=== PATIENT | female | born 1960 | race Caucasian/White ===

== ENCOUNTER 2016-12-22 20:38 | Emergency (ER) | payer OTHER ==
[~2016-12-22 20:38] MED LIST: ASPI81TA82 PO; ATOR40TA49 PO; CLON1TAB PO; CYMB30CA PO; FISH100020 OR; FURO10S PO; GABA300C3 PO; LISI-586 PO; PERC5TAB12 PO; TIZA4CAP PO; VITATAB25; Z.0.COMMODE-3:1; Z.0.WALKERFRONT
[2016-12-22 20:42] VITALS: BP 140/87; PULSE 103; RESP 20; TEMP 99.3; O2SAT 99
--- NOTE | 2016-12-22 21:16 | PD ---
Physical Exam Time Seen by Provider: 21:14 Narrative 56 y/o female with cough/chills for 5 days, worse today. Some heaviness in the chest, sob associated. vital signs reviewed. Seen at triage desk. Awaiting bed placement. Data Data Last Documented VS Vital Signs Date Time Temp Pulse Resp B/P Pulse Ox O2 Delivery O2 Flow Rate FiO2 12/22/16 20:42 99.3 103 20 140/87 99 Room Air [facility] Medical Record Reviewed: Yes Supervised Visit with ANJELICA: Brannon Jeffery December 22, 2016 21:16
[2016-12-22] MEDS ORDERED: SODIUM CHLORIDE 0.9% FLUSH 10 ML FLUSH IVF PRN (22:15)
[2016-12-22] MEDS ORDERED: methylPREDNISolone SOD SUCC 125 MG/2 ML VIAL IV ONE (22:15)
[2016-12-22] MEDS ORDERED: SODIUM CHLOR 0.9% 1000 ML INJ 1,000 ML IV ONE (22:15)
[2016-12-22 22:24] VITALS: RESP 19; O2SAT 96
[2016-12-22] MEDS: RESP: ALBUTEROL 2.5 MG/IPRATROPIUM 0.5 MG NEB (SCH) INH ×2 (22:26→22:27)
--- NOTE | 2016-12-22 22:34 | RADRPT ---
EXAM DATE/TIME: 12/22/2016 22:15 [place] COMPARISON: No previous studies available for comparison. INDICATIONS : Chest pain and cough for one week. MEDICAL HISTORY : None. SURGICAL HISTORY : None. ENCOUNTER: Initial ACUITY: 1 week PAIN SCORE: 3/10 LOCATION: Bilateral chest FINDINGS: PA and lateral views of the chest demonstrate the lungs to be symmetrically aerated without evidence of mass, infiltrate or effusion. The cardiomediastinal contours are unremarkable. Osseous structure s are intact. The patient is status post lower cervical fusion with screw-plate fixation device. CONCLUSION: No acute disease. There is no evidence of pneumonia. Macario Cazares MD on December 22, 2016 at 22:31 Board Certified Radiologist. This report was verified electronically.
[2016-12-22 22:49] LABS: AUTOMATED NEUTROPHIL # 4.2 TH/MM3 (1.8-7.7); BASOPHIL % 0.6 % (0.0-2.0); EOSINOPHIL # 0.1 TH/MM3 (0-0.4); HEMATOCRIT 34.3 % (35.0-46.0); HEMO FLAGS DIFF FINAL; LYMPH % 13.4 % (9.0-44.0); LYMPHOCYTE # 0.7 TH/MM3 (1.0-4.8); MEAN CELL VOLUME 81.2 FL (80.0-100.0); MEAN CORPUSCULAR HEMOGLOBIN 27.8 PG (27.0-34.0); MEAN CORPUSCULAR HGB CONC 34.3 % (32.0-36.0); MONO % 5.6 % (0.0-8.0); NEUT % 79.4 % (16.0-70.0); PLATELET COUNT 151 TH/MM3 (150-450); RED BLOOD COUNT 4.23 MIL/MM3 (4.00-5.30); RED CELL DISTRIBUTION WIDTH 16.1 % (11.6-17.2); WHITE BLOOD COUNT 5.3 TH/MM3 (4.0-11.0)
[2016-12-22 23:09] LABS: ALKALINE PHOSPHATASE 138 U/L (45-117); TOTAL BILIRUBIN ADULT 0.5 MG/DL (0.2-1.0)
[2016-12-22 23:10] LABS: ALT (GPT) 34 U/L (10-53); ANION GAP 6 MEQ/L (5-15); AST (GOT) 33 U/L (15-37); BICARBONATE 28.2 MEQ/L (21.0-32.0); BLOOD UREA NITROGEN 13 MG/DL (7-18); CHLORIDE 99 MEQ/L (98-107); GLOMERULAR FILTRATION RATE 78 ML/MIN (>89); POTASSIUM 4.3 MEQ/L (3.5-5.1); SODIUM (NA) 133 MEQ/L (136-145)
--- NOTE | 2016-12-22 23:37 | PD ---
HPI Chief Complaint: Cold / Flu Symptoms Time Seen by Provider: 22:01 Travel History International Travel<30 days: No Contact w/Intl Traveler<30days: No Traveled to known affect area: No History of Present Illness HPI Patient is a 56-year-old female who presents to emergency room with complaints of cough, congestion since Tuesday. Patient reports that her was sick prior to her being sick. Patient reports that she has had a nonproductive cough with no fever/chills. Reports that when she has her coughing fits, her chest hurts her. Patient reports that she did not get the flu vaccine this year. Reports that her chest only hurts when she coughs. PFSH Past Medical History Atrial Fibrillation: Yes Anxiety: Yes Depression: Yes Cardiovascular Problems: Yes (A-FIB) Diabetes: No Diminished Hearing: No Endocrine: No Hypertension: Yes Immune Disorder: No Psychiatric: Yes Thyroid Disease: No Tetanus Vaccination: > 5 Years ?: Not Past Surgical History Abdominal Surgery: Yes (GALLBLADDER, TUMMY TUCK) Cardiac Surgery: Yes (ABLASION) Gynecologic Surgery: Yes (HYSTERECTOMY) Hysterectomy: Yes (PARTIAL) Joint Replacement: No Other Surgery: Yes Social History Alcohol Use: Yes (RARELY) Tobacco Use: No Substance Use: No Allergies-Medications (Allergen,Severity, Reaction): Coded Allergies: Morphine (Verified Allergy, Intermediate, 08/06/14) Reported Meds & Prescriptions Reported Meds & Active Scripts Active Percocet 5-325 mg (Oxycodone/Acetaminophen) 1 Tab Tab 1 Tab PO Q4H PRN Walker Front Wheel (Walkerfront) Device 1 Unit Commode-3:1 Device 1 Unit Reported Cymbalta (Duloxetine HCl) 30 Mg Cap 30 Mg PO BID Zestoretic 20/12.5 (Lisinopril/Hctz 20 mg/12.5 mg) 20 Mg/12.5 Mg Tab 1 Tab PO BID Furosemide 10 Mg/Ml Charline 20 Mg PO Vitamin D-[address] (Cholecalciferol) 1,000 Unit Tab Fish Oil ([place]-3 Fatty Acids) 1,000 Mg Cap 1,000 Mg OR DAILY Aspir-81 (Aspirin) 81 Mg Tab 81 Mg PO DAILY Tizanidine Hcl (Tizanidine HCl) 4 Mg Tab 4 Mg PO HS PRN Clonazepam 1 Mg Tab 1 Mg PO TID Lipitor 40 Mg Tab (Atorvastatin Calcium) 40 Mg Tab 80 Mg PO HS Gabapentin 300 Mg Cap 300 Mg PO HS Review of Systems General / Constitutional: No: Fever Eyes: No: Visual changes HENT: No: Headaches Cardiovascular: No: Chest Pain or Discomfort Respiratory: Positive: Cough, Wheezing, No: Shortness of Breath Gastrointestinal: No: Abdominal Pain Genitourinary: No: Dysuria Musculoskeletal: No: Pain Skin: No Rash Neurologic: No: Weakness Psychiatric: No: Depression Endocrine: No: Polydipsia Hematologic/Lymphatic: No: Easy Bruising Physical Exam Narrative GENERAL: mild distress SKIN: Focused skin assessment warm/dry. HEAD: Atraumatic. Normocephalic. EYES: Pupils equal and round. No scleral icterus. No injection or drainage. ENT: No nasal bleeding or discharge. Mucous membranes pink and moist. NECK: Trachea midline. No JVD. CARDIOVASCULAR: Regular rate and rhythm. No murmur appreciated. RESPIRATORY: No accessory muscle use. Patient with scattered wheezing on exam GASTROINTESTINAL: Abdomen soft, non-tender, nondistended. Hepatic and splenic margins not palpable. MUSCULOSKELETAL: No obvious deformities. No clubbing. No cyanosis. No edema. NEUROLOGICAL: Awake and alert. No obvious cranial nerve deficits. Motor grossly within normal limits. Normal speech. PSYCHIATRIC: Appropriate mood and affect; insight and judgment normal. Data Data Last Documented VS Vital Signs Date Time Temp Pulse Resp B/P Pulse Ox O2 Delivery O2 Flow Rate FiO2 12/22/16 22:24 19 96 Room Air 12/22/16 20:42 99.3 103 140/87 Orders Electrocardiogram (12/22/16 22:06) Complete Blood Count With Diff (12/22/16 22:06) Comprehensive Metabolic Panel (12/22/16 22:06) Influenzae A/B Antigen (12/22/16 22:06) Chest, Pa & Lat (12/22/16 22:06) Ecg Monitoring (12/22/16 22:06) Iv Access Insert/Monitor (12/22/16 22:06) Oximetry (12/22/16 22:06) Sodium Chloride 0.9% Flush (Ns Flush) (12/22/16 22:15) Albuterol-Ipratropium Neb (Duoneb Neb) (12/22/16 22:15) Methylprednisolone So Succ Inj (Solumedr (12/22/16 22:15) Sodium Chlor 0.9% 1000 Ml Inj (Ns 1000 M (12/22/16 22:15) Azithromycin (Zithromax) (12/23/16 09:00) Labs Laboratory Tests Test 12/22/16 22:40 White Blood Count 5.3 TH/MM3 Red Blood Count 4.23 MIL/MM3 Hemoglobin 11.8 GM/DL Hematocrit 34.3 % Mean Corpuscular Volume 81.2 FL Mean Corpuscular Hemoglobin 27.8 PG Mean Corpuscular Hemoglobin 34.3 % Concent Red Cell Distribution Width 16.1 % Platelet Count 151 TH/MM3 Mean Platelet Volume 10.4 FL Neutrophils (%) (Auto) 79.4 % Lymphocytes (%) (Auto) 13.4 % Monocytes (%) (Auto) 5.6 % Eosinophils (%) (Auto) 1.0 % Basophils (%) (Auto) 0.6 % Neutrophils # (Auto) 4.2 TH/MM3 Lymphocytes # (Auto) 0.7 TH/MM3 Monocytes # (Auto) 0.3 TH/MM3 Eosinophils # (Auto) 0.1 TH/MM3 Basophils # (Auto) 0.0 TH/MM3 CBC Comment DIFF FINAL Differential Comment Sodium Level 133 MEQ/L Potassium Level 4.3 MEQ/L Chloride Level 99 MEQ/L Carbon Dioxide Level 28.2 MEQ/L Anion Gap 6 MEQ/L Blood Urea Nitrogen 13 MG/DL Creatinine 0.76 MG/DL Estimat Glomerular Filtration 78 ML/MIN Rate Random Glucose 106 MG/DL Calcium Level 8.0 MG/DL Total Bilirubin 0.5 MG/DL Aspartate Amino Transf 33 U/L (AST/SGOT) Alanine Aminotransferase 34 U/L (ALT/SGPT) Alkaline Phosphatase 138 U/L Total Protein 7.1 GM/DL Albumin 3.3 GM/DL MDM Medical Decision Making Medical Screen Exam Complete: Yes Emergency Medical Condition: Yes Interpretation(s) EKG at 2239: Normal sinus rhythm at 96 beats for minute, QT/QTc 321/375, no acute ST-T wave changes Vital Signs Date Time Temp Pulse Resp B/P Pulse Ox O2 Delivery O2 Flow Rate FiO2 12/22/16 22:24 19 96 Room Air 12/22/16 20:42 99.3 103 20 140/87 99 Room Air Laboratory Tests Test 12/22/16 22:40 White Blood Count 5.3 TH/MM3 (4.0-11.0) Red Blood Count 4.23 MIL/MM3 (4.00-5.30) Hemoglobin 11.8 GM/DL (11.6-15.3) Hematocrit 34.3 % (35.0-46.0) Mean Corpuscular Volume 81.2 FL (80.0-100.0) Mean Corpuscular Hemoglobin 27.8 PG (27.0-34.0) Mean Corpuscular Hemoglobin 34.3 % Concent (32.0-36.0) Red Cell Distribution Width 16.1 % (11.6-17.2) Platelet Count 151 TH/MM3 (150-450) Mean Platelet Volume 10.4 FL (7.0-11.0) Neutrophils (%) (Auto) 79.4 % (16.0-70.0) Lymphocytes (%) (Auto) 13.4 % (9.0-44.0) Monocytes (%) (Auto) 5.6 % (0.0-8.0) Eosinophils (%) (Auto) 1.0 % (0.0-4.0) Basophils (%) (Auto) 0.6 % (0.0-2.0) Neutrophils # (Auto) 4.2 TH/MM3 (1.8-7.7) Lymphocytes # (Auto) 0.7 TH/MM3 (1.0-4.8) Monocytes # (Auto) 0.3 TH/MM3 (0-0.9) Eosinophils # (Auto) 0.1 TH/MM3 (0-0.4) Basophils # (Auto) 0.0 TH/MM3 (0-0.2) CBC Comment DIFF FINAL Differential Comment Sodium Level 133 MEQ/L (136-145) Potassium Level 4.3 MEQ/L (3.5-5.1) Chloride Level 99 MEQ/L (98-107) Carbon Dioxide Level 28.2 MEQ/L (21.0-32.0) Anion Gap 6 MEQ/L (5-15) Blood Urea Nitrogen 13 MG/DL (7-18) Creatinine 0.76 MG/DL (0.50-1.00) Estimat Glomerular Filtration 78 ML/MIN (>89) Rate Random Glucose 106 MG/DL (74-106) Calcium Level 8.0 MG/DL (8.5-10.1) Total Bilirubin 0.5 MG/DL (0.2-1.0) Aspartate Amino Transf 33 U/L (15-37) (AST/SGOT) Alanine Aminotransferase 34 U/L (10-53) (ALT/SGPT) Alkaline Phosphatase 138 U/L (45-117) Total Protein 7.1 GM/DL (6.4-8.2) Albumin 3.3 GM/DL (3.4-5.0) Microbiology Date/Time Procedure Status Source Growth 12/22/16 22:40 Influenza Types A,B Antigen (NAN) - Final Complete Nasal Washing NEGATIVE FOR FLU A AND B ANTIGEN.... Last Impressions Chest X-Ray 12/22/162205 Signed Impressions: Service Date/Time: Thursday, December 22, 2016 22:15 - CONCLUSION: No acute disease. There is no evidence of pneumonia. Macario Cazares MD Differential Diagnosis Pneumonia, influenza, bronchitis, ACS, arrhythmia Narrative Course Patient is a 56-year-old female who presents to emergency room with complaints of cough, congestion for the past few days. She reports that her was sick with similar symptoms prior to onset of her symptoms. Patient reports that she has a dry nonproductive cough, no fevers or chills. X-ray of the chest ordered, EKG ordered, labs as well as influenza panel ordered. Patient was wheezing on exam, patient was given IV steroids as well as neb treatments. CBC & BMP Diagram 12/22/16 22:40 Microbiology Date/Time Procedure Status Source Growth 12/22/16 22:40 Influenza Types A,B Antigen (NAN) - Final Complete Nasal Washing NEGATIVE FOR FLU A AND B ANTIGEN.... Last Impressions Chest X-Ray 12/22/162205 Signed Impressions: Service Date/Time: Thursday, December 22, 2016 22:15 - CONCLUSION: No acute disease. There is no evidence of pneumonia. Macario Cazares MD Patient with no pneumonia on x-ray of the chest, EKG with no acute changes. Patient with most likely acute bronchitis. Plan to discharge patient home with antibiotics as well as steroids and albuterol treatments. Patient will follow- up with her primary care doctor and will return to the emergency room as needed. Diagnosis Primary Impression: Bronchitis Patient Instructions: General Instructions Additional Instructions: Please follow-up with your primary care doctor Return to emergency room as needed Return to emergency room if symptoms worsen or progress Please take all antibiotics as prescribed Med/Other Pt SpecificInfo: Prescription(s) given Scripts Promethazine-Codeine Liq 6.25-10 Mg/5 Ml Syrp5 Ml PO Q6H PRN (COUGH AND/OR COLD SYMPTOMS) 7 Days Ref 0 Prov:Vaishnavi Stout DO 12/22/16 Benzonatate (Tessalon Perles)100 Mg [id number] Mg PO TID PRN (COUGH) #30 CAP Ref 0 Prov:Vaishnavi Stout DO 12/22/16 Prednisone 20 Mg Tab20 Mg PO BID 5 Days Ref 0 Prov:Vaishnavi Stout DO 12/22/16 Albuterol 8.5 GM Inh (Proair Hfa 8.5 GM Inh)90 Mcg/Act Aer2 Puff INH Q4-6H PRN ( SHORTNESS OF BREATH) #1 INHALER Ref 0 108 mcg/actuation Prov:Vaishnavi Stout DO 12/22/16 Azithromycin 500 Mg [id number] Mg PO DAILY #5 TAB Ref 0 Prov:Vaishnavi Stout DO 12/22/16 Disposition: 01 DISCHARGE HOME Condition: Stable Vaishnavi Stout DO December 22, 2016 23:37
[2016-12-22] MEDS ORDERED: ALBUAER3 INH (23:40)
[2016-12-22] MEDS ORDERED: AZIT500T2 PO (23:40)
[2016-12-22] MEDS ORDERED: BENZ100 PO (23:41)
[2016-12-22] MEDS ORDERED: PRED20 PO (23:41)
[2016-12-22] MEDS ORDERED: PROM6.256 PO (23:41)
[2016-12-23] VITALS: BP 152/67; PULSE 104; RESP 15; O2SAT 96
[2016-12-23] MEDS ORDERED: AZITHROMYCIN 250 MG TAB PO ONE (00:15)
[2016-12-23] MEDS ORDERED: AZITHROMYCIN 250 MG TAB PO SCH (09:00)
--- NOTE | 2016-12-23 18:23 | EKG ---
Date Performed: 12/22/2016 Time Performed: 22:39:45 PTAGE: 56 years EKG: Sinus rhythm NORMAL ECG Compared to prior tracing no significant change PREVIOUS TRACING : 08/06/2014 10.08 DOCTOR: Saul Schwarz Interpretating Date/Time 12/23/2016 18:22:01
== END 2016-12-23 00:41 | disposition home or self-care (01) ==
LOC: NEPD 20:38
DX: J40 Bronchitis, not specified as acute or chronic (principal); I10 Essential (primary) hypertension; Z86.79 Personal history of other diseases of the circulatory system; Z86.59 Personal history of other mental and behavioral disorders
CPT/HCPCS: 71020; 80053; 85025; 87804; 93005; 94640; 94664; 96361; 96374; 99284; J2930; J7030